=== PATIENT | female | born 1960 | race Two or more races ===

== ENCOUNTER 2018-09-15 07:42 | Emergency (ER) | payer OTHER ==
[2018-09-15 07:49] VITALS: BMI 18.6
--- NOTE | 2018-09-15 07:51 | PDOC ---
History of Present Illness - General Chief Complaint: Weakness Stated Complaint: NEAR SYNCOPE Time Seen by Provider: 09/15/18 07:51 History Source: Patient, Family - History of Present Illness Initial Comments: 09/15/18 08:58 The patient is a 58 year old female with a PMH of Lung CA with brain metasasis ( s/p radiation in July 2018) who presents following an episode of lightheadedness. Patient was sitting on the side of her bed and when she went to stand up she felt lightheaded w/o chest pain, shortness of breath, or syncope Daughter @ bedside assists w/history. Daughter noted that her eyes rolled back in her head but there were no tonic clonic arm movements, no bowel/ bladder incontinence, no tongue biting -- unclear how long this episode lasted, daughter thinks less than 30 seconds. Patient then @ baseline, but continued c/ o lightheadedness. Daughter notes a few days of over-exertion with family activities. Also notes that this morning patient was being rushed to get out of bed and get ready for the day by daughter. Recent weight loss 2/2 to CA however increased appetite s/p radiation treatment. Patient notes she drinks a cup of coffee every morning but does not drink water during the day. ROS is active for any medical complaints including chest pain, shortness of breath, abdominal pain, diarrhea/constipation, nausea/vomiting, dysuria/ hematuria. 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 As per EMR, patient has never been evaluated at our facility on prior occasion. Past History - Past Medical History Allergies/Adverse Reactions: Allergies Allergy/AdvReac Type Severity Reaction Status Date / Time No Known Allergies Allergy Verified 09/15/18 07:50 Home Medications: Ambulatory Orders Atorvastatin Calcium 80 mg PO HS 09/15/18 Dexamethasone 6 mg PO BID 09/15/18 Pantoprazole Sodium 40 mg PO DAILY 09/15/18 Sulfamethoxazole/Trimethoprim [Sulfamethoxazole-Tmp Ss Tablet] 1 each PO ASDIR 09/15/18 Cancer: Yes (Lung , Bone) COPD: Yes Hypercholesterolemia: Yes Lung CA: Yes - Suicide/Smoking/Psychosocial Hx Smoking History: Former smoker Have you smoked in the past 12 months: No Information on smoking cessation initiated: No Review of Systems - Review of Systems Constitutional: No: Chills, Fever HEENTM: No: Blurred Vision, Double Vision Respiratory: No: Cough, Shortness of Breath, Wheezing Cardiac (ROS): Yes: Lightheadedness. No: Chest Pain, Palpitations, Syncope ABD/GI: No: Constipated, Diarrhea, Nausea, Vomiting : No: Burning, Dysuria *Physical Exam - Vital Signs Last Vital Signs Temp Pulse Resp BP Pulse Ox 97.0 F L 89 18 116/79 100 09/15/18 07:46 09/15/18 07:46 09/15/18 07:46 09/15/18 07:46 09/15/18 07:46 - Physical Exam General Appearance: Yes: Nourished, Thin HEENT: positive: Normal Voice, Hearing Grossly Normal Neck: positive: Trachea midline, Supple Cardiovascular: positive: S1, S2. negative: Edema, JVD Vascular Pulses: Dorsalis-Pedis (R): 2+, Doralis-Pedis (L): 2+ Gastrointestinal/Abdominal: positive: Normal Bowel Sounds, Soft. negative: Tenderness, Hernia, Mass Musculoskeletal: negative: CVA Tenderness, CVA Tenderness (L) Extremity: positive: Normal Capillary Refill, Normal Inspection Integumentary: positive: Normal Color, Dry, Warm Neurologic: positive: Fully Oriented, Alert ED Treatment Course - LABORATORY CBC & Chemistry Diagram: 09/15/18 09:30 09/15/18 09:30 Medical Decision Making - Medical Decision Making 09/15/18 09:00 58 year old female h/o Lung CA w/brain mets with 2-3 minute episode of lightheadedness this a.m. when moving from sitting to standing position. Equivocal clinical picture of seizure -- no tonic/clonic, no loss of bowel/ bladder. VS unremarkable. No active medical complaints @ presentation. Frontal diagnosis: orthostatic hypotension +/- dehydration 2/2 to polypharmacy or decreased nutritional intake, infection, also possibly sequelae of CA including increased brain mets, less likely CVA/TIA, ACS. Will obtain head CT, basic labs (including Mg), EKG, Troponin x1. Reassess. 09/15/18 10:18 Patient reassessed @ bedside. VSS Urine clean Head CT pending 09/15/18 12:04 CBC, CMP, Mg unremarkable Head CT negative for acute bleed/infarction, hypodense areas read as chronic infarct, possibly brain mets for which patient is already being treated CXR shows EMILEE mass c/w patient's advanced, metastatic lung CA Patient ambulatory, tolerating PO intake, improved. Will discharge patient home with return precautions, referral to resident clinic. Patient and patient's daughter @ bedside counseled extensively on importance of establishing primary care. *DC/Admit/Observation/Transfer Diagnosis at time of Disposition: Light-headed feeling - Discharge Dispostion Disposition: HOME Condition at time of disposition: Good Decision to Admit order: No - Referrals Referrals: Erik Stuart MD [Staff Physician] - - Patient Instructions Printed Discharge Instructions: Improving Nutrition in the Elderly, DI for Dehydration -- Adult Additional Instructions: You were evaluated today for your lightheadedness. All of your labs, an EKG and a CXR showed no concerning findings. At this time you are safe for discharge. Please follow up with your cancer doctor as previously scheduled. We have also provided a referral to primary care. Please make an appointment within the next 3 days for evaluation. Continue to take all your medications as prescribed. Drink plenty of water. Every morning when you wake up, sit on the edge of the bed for 1-2 minutes before standing. Return to the Emergency Department for any new/worsening/concerning symptoms. - Post Discharge Activity
[2018-09-15] MEDS ORDERED: SODIUM CHLORIDE 0.9% 1000 ML INFUS.BAG IV ONE (08:28)
[2018-09-15 08:58] LABS: URINE APPEARANCE CLEAR; URINE BILIRUBIN NEGATIVE (<2.0 mg/dL); URINE COLOR LTYELLOW; URINE GLUCOSE (UA) NEGATIVE (NEGATIVE); URINE KETONE NEGATIVE (NEGATIVE); URINE LEUK ESTERASE NEGATIVE (NEGATIVE); URINE NITRITE NEGATIVE (NEGATIVE); URINE PROTEIN NEGATIVE (NEGATIVE); URINE UROBILINOGEN NEGATIVE mg/dL (0.2-1.0)
[2018-09-15 09:49] LABS: BASO % 0.4 % (0-2.0); EOS % 0.2 % (0-4.5); HEMATOCRIT 35.9 % (32.4-45.2); HEMOGLOBIN 11.7 GM/dL (10.7-15.3); LYMPH % 8.4 % (8-40); MCH 28.4 pg (25.7-33.7); MCHC 32.7 g/dl (32.0-36.0); MEAN PLT VOLUME 8.8 fl (7.5-11.1); MONO % 7.9 % (3.8-10.2); NEUT % 83.1 % (42.8-82.8); PLATELET COUNT 319 K/MM3 (134-434); RBC 4.12 M/mm3 (3.60-5.2); RDW 17.1 % (11.6-15.6); WHITE BLOOD COUNT 7.2 K/mm3 (4.0-10.0)
--- NOTE | 2018-09-15 10:01 | PDOC ---
Attending Attestation - Resident Resident Name: Marcelina Sanford - ED Attending Attestation I have performed the following: I have examined & evaluated the patient, The case was reviewed & discussed with the resident, I agree w/resident's findings & plan, Exceptions are as noted - HPI HPI: 09/15/18 12:01 58 years old past medical history significant for metastatic lung cancer status post 1 round of radiation scheduled for another round of radiation with extensive brain metastases who presents to the emergency department after an episode of lightheadedness this morning. Per the family patient was very busy yesterday was kept up late this morning the family was rushing to get ready and rushed the mother up from bed when she stood up quickly she began to feel dizzy and lightheaded did not pass out or lose consciousness symptoms resolved after patient sat back down Upon arrival to the emergency Department patient with no complaints no other associated factors. Family denies fever chills chest pain shortness of breath nausea vomiting diarrhea. ROS: A complete review of 10 out of 10 review of systems is taken and is negative apart from what is previously mentioned below and in the HPI. - Physicial Exam PE: 09/15/18 12:01 Vitals: Triage Vital signs reviewed General Appearance: no acute distress, well nourished well developed, Head: Atraumatic, Eyes: Pupils equal reactive round, extraocular movement intact Neck: Supple;No Nucal rigidity Chest Wall: Nontender Cardiac: Regular rate and rhythym, no murmurs, no rubs, no gallops, Lungs: Clear to auscultation bilateral, good air movement bilaterally, Abdomen: Soft, non distended, normal bowel sounds, non tender to palpation Extremities: Full range of motion to all extremities, no cyanosis, clubbing, or edema Skin: Warm and dry, no rashes or lesions, no rash, no petechiae Neuro: Cranial Nerves 2-12 grossly intact, Strength intact to all extremities, Sensation intact to all extremities,gait normal Psych: normal mood, normal affect - Medical Decision Making 09/15/18 16:27 Status post normal saline patient feels much better able to ambulate around the emergency department comfortably. Her daughter is at the bedside with her and states the patient looks well is at her baseline At this point patient and family member requesting to go home her laboratory analysis unremarkable her EKG is nonischemic her troponin is negative her's CAT scan shows no acute findings they have very close follow-up We advised patient to return to the ED should any symptoms return or they have any concerns. Findings, need for follow-up and strict return instructions discussed with patient and family. Heart Score/ECG Review - ECG Impressions Comment:: 09/15/18 16:27 EKG performed at 9:31 AM demonstrates normal sinus rhythm no ST elevations noted T-wave inversions. Interpreted by me.
[2018-09-15 10:36] LABS: ALBUMIN 2.9 g/dl (3.4-5.0); ALK PHOS 87 U/L (45-117); ANION GAP 9 MMOL/L (8-16); BILIRUBIN,TOTAL 0.4 mg/dL (0.2-1); BLOOD UREA NITROGEN 6 mg/dL (7-18); CALCIUM 8.1 mg/dL (8.5-10.1); CHLORIDE 108 mmol/L (98-107); CO2 27 mmol/L (21-32); CREATININE 0.4 mg/dL (0.55-1.3); GLUCOSE,RANDOM 92 mg/dL (74-106); POTASSIUM 3.5 mmol/L (3.5-5.1); SGOT/AST 16 U/L (15-37); SGPT/ALT 40 U/L (13-61); SODIUM 144 mmol/L (136-145); TOT PROT 5.8 g/dl (6.4-8.2)
--- NOTE | 2018-09-15 12:07 | EKG ---
Test Reason : Blood Pressure : / mmHG Vent. Rate : 080 BPM Atrial Rate : 080 BPM P-R Int : 118 ms QRS Dur : 124 ms QT Int : 384 ms P-R-T Axes : 065 022 048 degrees QTc Int : 442 ms NORMAL SINUS RHYTHM NON-SPECIFIC INTRA-VENTRICULAR CONDUCTION DELAY BORDERLINE ECG NO PREVIOUS ECGS AVAILABLE Confirmed by RICHA COOK MD ([id number]) on 09/15/2018 12:07:36 PM Referred By: Confirmed By:RICHA COOK MD
[2018-09-15 13:24] LABS: MAGNESIUM 2.1 mg/dL (1.8-2.4)
[2018-09-15 13:46] VITALS: BP 117/53; PULSE 75; TEMP 97.6
== END 2018-09-15 13:15 | disposition home or self-care (01) ==
LOC: JER 07:42 → EDBD 07:42 → JER 13:15
DX: R42 Dizziness and giddiness (principal); C34.90 Malignant neoplasm of unspecified part of unspecified bronchus or lung; C79.31 Secondary malignant neoplasm of brain; C79.51 Secondary malignant neoplasm of bone; J44.9 Chronic obstructive pulmonary disease, unspecified; Z87.891 Personal history of nicotine dependence
CPT/HCPCS: 36415; 70450-TC; 71045-TC-FY; 80053; 81003; 82550; 83735; 84484; 85025; 87086; 93005; 93010; 99285-25; J7030

== ENCOUNTER 2019-06-29 20:35 | Emergency (ER) | payer OTHER | END 2019-06-30 04:26 | disposition home or self-care (01) | LOC: JER 06-30 04:26 ==